=== PATIENT | female | born 1980 | race Caucasian/White ===

== ENCOUNTER 2020-12-26 21:09 | Emergency (ER) | payer SELFPAY ==
[~2020-12-26] VITALS: Ht 157.5 cm; Wt 59.4 kg
[2020-12-26 21:19] VITALS: BP 138/82
--- NOTE | 2020-12-26 21:24 | NUR ---
PATIENT AMBUALTED TO LOBBY WITH STEADY GAIT. PATIENT GIVEN URINE CUP BUT UNABLE TO PROVIDE UA AT THIS TIME.
--- NOTE | 2020-12-26 21:45 | NUR ---
Note undone in EDM - 12/27/20 at 0228 by [email or web address] 40 Y/O FEMALE PATIENT PRESENTS TO ED WITH RT BACK PAIN. PT STATES "I HAVE RT LOWER BACK PAIN OF 10/10 AND DOES NOT GO ANYWHERE ELSE." . DENIES N/V/D; SKIN IS PINK/WARM/DRY; AAOX4 WITH EVEN AND STEADY GAIT; LUNGS CLEAR BL; HR EVEN AND REGULAR; PT DENIES ANY FEVER, CP, SOB, OR COUGH AT THIS TIME; PATIENT STATES PAIN OF 10/10 AT THIS TIME; VSS; PATIENT POSITIONED FOR COMFORT; HOB ELEVATED; BEDRAILS UP X2; BED DOWN. ER MADE AWARE OF PT STATUS. ALLERGIES: SEAFOOD PMH: DENIES LMP: 12/23/20
--- NOTE | 2020-12-26 22:20 | NUR ---
PT AMBULATED TO BED #6
--- NOTE | 2020-12-26 22:30 | NUR ---
40 Y/O FEMALE PATIENT PRESENTS TO ED WITH RT BACK PAIN. PT STATES "I HAVE RT LOWER BACK PAIN OF 10/10 AND DOES NOT GO ANYWHERE ELSE." . DENIES N/V/D; SKIN IS PINK/WARM/DRY; AAOX4 WITH EVEN AND STEADY GAIT; LUNGS CLEAR BL; HR EVEN AND REGULAR; PT DENIES ANY FEVER, CP, SOB, OR COUGH AT THIS TIME; PATIENT STATES PAIN OF 10/10 AT THIS TIME; VSS; PATIENT POSITIONED FOR COMFORT; HOB ELEVATED; BEDRAILS UP X2; BED DOWN. ER MD MADE AWARE OF PT STATUS. ALLERGIES: SEAFOOD PMH: DENIES LMP: 12/23/20
--- NOTE | 2020-12-26 22:40 | NUR ---
USED EPIC PRELUDE ANALYST PHONE BECAUSE PT WAS MORE COMFORTABLE SPEAKING IN [place]. EPIC PRELUDE ANALYST NUMBER: [id number]
[2020-12-26] MEDS ORDERED: KETOROLAC 15 MG/ML VIAL IVP ONE (23:00)
[2020-12-26] MEDS ORDERED: NACL 0.9% 1,000 ML IV ONE (23:00)
[2020-12-26] MEDS ORDERED: ONDANSETRON 4 MG/2 ML VIAL IVP ONE (23:00)
[2020-12-26] MEDS ORDERED: MORPHINE SULFATE 4 MG/ML SYR IVP ONE (23:00)
[2020-12-26] MEDS ORDERED: cefTRIAXone 1,000 MG VIAL ONE (23:15)
[2020-12-26 23:25] LABS: BASOPHILS % (AUTO) 0.1 % (0.0-2.0); EOSINOPHILS % (AUTO) 0.1 % (0.0-4.0); HEMATOCRIT 35.8 % (36-48); HEMOGLOBIN 12.4 g/dL (12.0-16.0); LYMPHOCYTES # (AUTO) 0.3 K/uL (2.5-16.5); LYMPHOCYTES % (AUTO) 4.7 % (20.5-51.1); MEAN CORPUSCULAR HEMOGLOBIN 32 pg (27-31); MEAN CORPUSCULAR HGB CONC 35 g/dL (33-37); MONOCYTES # (AUTO) 0.1 K/uL (0.8-1.0); MONOCYTES % (AUTO) 1.3 % (1.7-9.3); NEUTROPHILS # (AUTO) 6.3 K/uL (1.8-7.7); NEUTROPHILS % (AUTO) 93.8 % (42.2-75.2); PLATELET COUNT (AUTO) 281 K/uL (140-450); RED BLOOD CELL COUNT(AUTO) 3.94 MIL/uL (4.20-5.40); RED CELL DISTRIBUTION WIDTH 12.7 % (11.6-13.7); WHITE BLOOD COUNT (AUTO) 6.7 K/uL (4.8-10.8)
[2020-12-26 23:49] LABS: ALBUMIN 4.2 g/dL (3.4-5.0); ANION GAP 15.4 (8-16); CREATININE 1.2 mg/dL (0.6-1.3); POTASSIUM 3.4 mmol/L (3.5-5.1); TOTAL BILIRUBIN 0.6 mg/dL (0.0-1.0)
[2020-12-27] MEDS ORDERED: POTASSIUM CHLORIDE 10 MEQ TABER PO ONE (00:05)
[2020-12-27] MEDS ORDERED: IBUP-2213 PO (01:33)
[2020-12-27] MEDS ORDERED: CEPH-588 PO (01:33)
[2020-12-27] MEDS ORDERED: ACET-8386 PO (01:33)
[2020-12-27] MEDS ORDERED: ONDA-24 PO (01:38)
--- NOTE | 2020-12-27 01:42 | NUR ---
IV removed, catheter intact and site benign. Applied folded 4x4 gauze and tape to stop bleeding.
[2020-12-27 01:45] VITALS: BP 128/86
--- NOTE | 2020-12-27 01:45 | NUR ---
Patient discharged with v/s stable. Written and verbal after care instructions given and explained. Patient alert, oriented and verbalized understanding of instructions. Ambulatory with steady gait. All questions addressed prior to discharge. ID band removed. Patient advised to follow up with PMD. Rx of NORCO 5/325, IBUPROFEN, KEFLEX given. Patient educated on indication of medication including possible reaction and side effects. Opportunity to ask questions provided and answered.
== END 2020-12-27 01:45 | disposition home or self-care (01) ==
LOC: MED 21:09
DX: N20.0 Calculus of kidney (principal); N39.0 Urinary tract infection, site not specified; E87.6 Hypokalemia; E87.1 Hypo-osmolality and hyponatremia; R73.9 Hyperglycemia, unspecified
CPT/HCPCS: 36415; 74176; 80053; 81002; 81025; 85025; 96365; 96375; 99284; J0696; J1885; J2270; J2405; J7030